=== PATIENT | female | born 1995 | race Caucasian/White ===

== ENCOUNTER → 2016-05-21 | Outpatient (CLI) | payer OTHER ==
[2016-05-21 15:43] LABS: APPEARANCE,URINE CLEAR; BILIRUBIN,URINE NEGATIVE (NEGATIVE); GLUCOSE, URINE NEGATIVE (NEGATIVE); KETONES,URINE NEGATIVE (NEGATIVE); LEUKOCYTE ESTERASE,URINE NEGATIVE (NEGATIVE); NITRITE,URINE NEGATIVE (NEGATIVE); PROTEIN,URINE NEGATIVE (NEGATIVE); URINE SPECIFIC GRAVITY 1.006; UROBILINOGEN,URINE NEGATIVE mg/dL (<2.0)
== END ==
LOC: OD 14:54
PROVIDERS: ATTEND Physician Assistant
DX: Z00.00 Encounter for general adult medical examination without abnormal findings (principal)
CPT/HCPCS: 36415; 81001; 85660

== ENCOUNTER → 2016-11-20 | Outpatient (CLI) | payer OTHER ==
[2016-11-20 15:15] LABS: ADD HIVPANEL? NO; HIV (1 AND 2) ANTIBODY NEGATIVE (NEGATIVE)
[2016-11-21 17:12] LABS: CHLAM PCR NOT DETECTED (NOT DETECT)
== END ==
LOC: OD 12:52
PROVIDERS: ATTEND Pediatrics
DX: Z11.3 Encounter for screening for infections with a predominantly sexual mode of transmission (principal)
CPT/HCPCS: 36415; 86592; 86701; 87491; 87591

== ENCOUNTER 2016-12-23 17:58 | Emergency (ER) | payer OTHER ==
--- NOTE | 2016-12-23 19:20 | ER Document Report ---
ED GI/ - General Chief Complaint: Pelvic pain/ peeing blood Stated Complaint: PELVIC PAIN/VAGINAL BLEEDING Time Seen by Provider: 12/23/16 18:58 Mode of Arrival: Ambulatory Information source: Patient Notes: 21-year-old female presents to ED for pelvic pain and vaginal bleeding. She states she has blood when she urinates. She also has tingling when she urinates and severe pain afterwards. She states this all started yesterday. She states she was on control until about 2 months ago. She states her periods have always been until her last period which was 2 weeks late which was 2 weeks ago. At that time she went to her primary doctor and they did all the STD checks which were negative. She states then she started bleeding again last night when the pain started. TRAVEL OUTSIDE OF THE [place] IN LAST 30 DAYS: No - HPI Patient complains to provider of: Pelvic pain, Vaginal bleeding, Vaginal pain, Other - Pain burning and blood with urine. No: Vaginal discharge Onset: Yesterday Timing/Duration: Intermittent Quality of pain: Burning, Sharp Severity at maximum: Moderate Severity in ED: Moderate Pain Level: 3 Location: Suprapubic, Pelvis Vaginal bleeding (Compared to normal period): Senior Outside Sales Representative, Dark brown LMP: 2 weeks ago Associated symptoms: Urinary frequency, Urinary urgency, Other - States it tingles when she urinates and then afterwards it is severe pain. 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 Lives with: Parents Family History: CAD, CVA, DM, Hyperlipidemia, Hypertension, Thyroid Disfunction Patient has suicidal ideation: No Patient has homicidal ideation: No - Past Medical History Cardiac Medical History: Reports: None Pulmonary Medical History: Reports: Hx Asthma EENT Medical History: Reports: None Neurological Medical History: Reports: None Endocrine Medical History: Reports: Hx Hypothyroidism Renal/ Medical History: Reports: Hx Ovarian Cysts Malignancy Medical History: Reports: None GI Medical History: Reports: None Musculoskeltal Medical History: Reports Hx Arthritis, Reports Hx Musculoskeletal Deformity, Reports Hx Musculoskeletal Trauma Skin Medical History: Reports None Psychiatric Medical History: Reports: None Traumatic Medical History: Reports: Hx Fractures - Right foot and left hand Infectious Medical History: Reports: None Past Surgical History: Reports: Hx Orthopedic Surgery - left hip - Immunizations Hx Diphtheria, Pertussis, Tetanus Vaccination: No - > 5 yrs ago Review of Systems - Review of Systems Constitutional: No symptoms reported EENT: No symptoms reported Cardiovascular: No symptoms reported Respiratory: No symptoms reported Gastrointestinal: No symptoms reported Genitourinary: Burning, Frequency, Hematuria Female Genitourinary: Vaginal bleeding, Other - pelvic pain Musculoskeletal: No symptoms reported Skin: No symptoms reported Hematologic/Lymphatic: No symptoms reported Neurological/Psychological: No symptoms reported -: Yes All other systems reviewed and negative Physical Exam - Vital signs Vitals: Temp Pulse Resp BP Pulse Ox 99.0 F 80 16 118/58 L 99 12/23/16 18:30 12/23/16 18:30 12/23/16 18:30 12/23/16 18:30 12/23/16 18:30 Interpretation: Normal - General General appearance: Appears well, Alert - HEENT Head: Normocephalic, Atraumatic Eyes: Normal Pupils: PERRL - Respiratory Respiratory status: No respiratory distress Chest status: Nontender Breath sounds: Normal Chest palpation: Normal - Cardiovascular Rhythm: Regular Heart sounds: Normal auscultation Murmur: No - Abdominal Inspection: Normal Distension: No distension Bowel sounds: Normal Tenderness: Tender - suprapubic pain Organomegaly: No organomegaly - Back Back: Normal, Nontender - Extremities General upper extremity: Normal inspection, Nontender, Normal color, Normal ROM , Normal temperature General lower extremity: Normal inspection, Nontender, Normal color, Normal ROM , Normal temperature, Normal weight bearing. No: Cheryl's sign - Neurological Neuro grossly intact: Yes Cognition: Normal Orientation: AAOx4 Buster Coma Scale Eye Opening: Spontaneous [place] Coma Scale Verbal: Oriented [place] Coma Scale Motor: Obeys Commands [place] Coma Scale Total: 15 Speech: Normal Motor strength normal: LUE, RUE, LLE, RLE Sensory: Normal - Psychological Associated symptoms: Normal affect, Normal mood - Skin Skin Temperature: Warm Skin Moisture: Dry Skin Color: Normal Course - Re-evaluation Re-evalutation: 12/23/16 21:27 Discussed ultrasound and labs with patient. Patient was treated with Macrobid for the UTI. Patient discharged home to follow-up with her primary doctor. Patient sent home with a prescription for Macrobid. Urine culture was sent. - Vital Signs Vital signs: Temp Pulse Resp BP Pulse Ox 99.0 F 80 16 118/58 L 99 12/23/16 18:30 12/23/16 18:30 12/23/16 18:30 12/23/16 18:30 12/23/16 18:30 - Laboratory Result Diagrams: 12/23/16 20:08 Laboratory results interpreted by me: 12/23/16 20:20 Urine Blood LARGE H Ur Leukocyte Esterase LARGE H - Diagnostic Test Radiology reviewed: Image reviewed, Reports reviewed Discharge - Discharge Clinical Impression: Vaginal bleeding UTI (urinary tract infection) Qualifiers: Urinary tract infection type: site unspecified Hematuria presence: with hematuria Qualified Code(s): N39.0 - Urinary tract infection, site not specified Condition: Stable Disposition: HOME, SELF-CARE Instructions: Family Physicians / Practices Additional Instructions: URINARY TRACT INFECTION: Your evaluation indicates that you have a urinary tract infection. This is due to germs growing in the bladder. This is a common problem. This infection usually responds quickly to antibiotics. Your antibiotic should be taken exactly as prescribed. Drink plenty of fluids -- three to four quarts a day. Occasionally, a bladder anesthetic will be prescribed to help stop the feeling of urgency until the antibiotic has a chance to clear the infection. This may cause your urine to be dark orange. Certain urine infections require a culture. If the doctor obtained a culture, the results will be back in two days. You should call to see if a change in treatment is needed. A repeat urinalysis after you finish treatment is often recommended. The physician will let you know if further testing is required. Call the doctor if you develop fever, chills, flank pain, inability to urinate, or blood in the urine. NITROFURANTOIN (MACRODANTIN, MACROBID): You have received a prescription for nitrofurantoin (Macrodantin). This antibiotic is used for urinary tract infections. Women who are or nursing should notify the physician before taking this medicine. If you have ever had a problem caused by this medication in the past, be sure the physician is aware of it. Common side effects of this medicine include nausea, vomiting, or decreased appetite. Notify your physician if these side effects become severe. Immediately stop this medicine and call the physician if you develop cough , shortness of breath, chest pain, weakness, jaundice (yellow color of the skin and whites of the eyes), or a skin rash. URINARY ANESTHETIC AGENT: You have been given a medication (Pyridium) for urinary tract discomfort. This medicine numbs the lining of the bladder and urethra, resulting in less pain, burning, and urgency. You may take it as needed, according to instructions. When the symptoms resolve, you can stop this medication (be sure to continue any other medications the doctor has given you). This medicine turns the urine a dark orange. It may stain underwear. Occasionally, it can cause nausea. Return for evaluation if there are any unexpected effects, such as itching, hives, or shortness of breath. FOLLOW-UP CARE: If you have been referred to a physician for follow-up care, call the physician s office for an appointment as you were instructed or within the next two days. If you experience worsening or a significant change in your symptoms, notify the physician immediately or return to the Emergency Department at any time for re-evaluation. Prescriptions: Nitrofurantoin/Nitrofuran Mac [Macrobid 100 mg Capsule] 1 tab PO BID #14 capsule Phenazopyridine HCl [Pyridium] 200 mg PO TID #6 tablet
[2016-12-23 20:25] LABS: ABSOLUTE EOSINOPHILS # (AUTO) 0.4 10^3/uL (0.0-0.6); ABSOLUTE LYMPHOCYTES (AUTO) 1.4 10^3/uL (0.5-4.7); ABSOLUTE MONOCYTES (AUTO) 0.6 10^3/uL (0.1-1.4); BASOPHILS % (AUTO) 0.6 % (0-2); EOSINOPHILS % (AUTO) 5.4 % (0-6); HEMATOCRIT 36.1 % (36.0-47.0); HEMOGLOBIN 12.4 g/dL (12.0-15.5); HGB HCT DIFFERENCE 1.1; LYMPHOCYTES % (AUTO) 19.2 % (13-45); MEAN CORPUSCULAR HEMOGLOBIN 31.7 pg (27.0-33.4); MEAN CORPUSCULAR HGB CONC 34.4 g/dL (32.0-36.0); MEAN CORPUSCULAR VOLUME 92 fl (80-97); RED BLOOD COUNT 3.91 10^6/uL (3.72-5.28); RED CELL DISTRIBUTION WIDTH 13.2 % (11.5-14.0); SEGMENTED NEUTROPHILS % (AUTO) 66.8 % (42-78); WHITE BLOOD COUNT 7.5 10^3/uL (4.0-10.5)
[2016-12-23 20:32] LABS: APPEARANCE,URINE SLIGHTLY-CLOUDY; BILIRUBIN,URINE NEGATIVE (NEGATIVE); GLUCOSE, URINE NEGATIVE (NEGATIVE); KETONES,URINE NEGATIVE (NEGATIVE); LEUKOCYTE ESTERASE,URINE LARGE (NEGATIVE); NITRITE,URINE NEGATIVE (NEGATIVE); PROTEIN,URINE NEGATIVE (NEGATIVE); URINE SPECIFIC GRAVITY 1.008; UROBILINOGEN,URINE NEGATIVE mg/dL (<2.0)
--- NOTE | 2016-12-23 20:58 | RADIOLOGY REPORT (SQ) ---
EXAM DESCRIPTION: U/S NON-OB PELVIS TV W/O DOP COMPLETED DATE/TIME: 12/23/2016 8:47 pm REASON FOR STUDY: pelvic pain with bleeding COMPARISON: 12/20/2014. TECHNIQUE: Dynamic and static grayscale images acquired of the pelvis via transvaginal approach and recorded on PACS. Additional selected color Doppler and spectral images recorded. LIMITATIONS: None. FINDINGS: UTERUS: Contour normal. No mass. ENDOMETRIAL STRIPE: No focal or generalized thickening. No masses. CERVIX: No nabothian cysts. RIGHT OVARY: No abnormal masses. RIGHT OVARY DOPPLER: Normal arterial vascular flow without evidence for torsion. LEFT OVARY: No abnormal masses. LEFT OVARY DOPPLER: Normal arterial vascular flow without evidence for torsion. FREE FLUID: None noted. OTHER: No other significant finding. MEASUREMENTS: UTERUS: 3.4 x 4.5 x 8.2 cm. ENDOMETRIAL STRIPE: 2 mm. RIGHT OVARY: 1.4 x 2.3 x 2.9 cm. LEFT OVARY: 1.9 x 2.4 x 3.2 cm. IMPRESSION: NORMAL TRANSVAGINAL PELVIC ULTRASOUND. TECHNICAL DOCUMENTATION: JOB ID: [id number]- All Rights Reserved
[2016-12-23] MEDS ORDERED: NITROFURANTOIN MONOHYD/M-CRYST 100 MG CAPSULE PO ONE (21:26)
[2016-12-23] MEDS ORDERED: PHENAZOPYRIDINE HCL 100 MG TABLET PO ONE (21:57)
[2016-12-23 22:33] VITALS: BP 126/69
== END 2016-12-23 22:22 | disposition home or self-care (01) ==
LOC: ER 17:58
DX: N39.0 Urinary tract infection, site not specified (principal); N93.8 Other specified abnormal uterine and vaginal bleeding; R10.2 Pelvic and perineal pain
CPT/HCPCS: 99284; 36415; 87086; 84703; 85025; 87088; 81001; 87186; 76830; J3490; J8499

== ENCOUNTER → 2017-02-04 | Outpatient (CLI) | payer OTHER ==
[2017-02-04 09:58] LABS: APPEARANCE,URINE SLIGHTLY-CLOUDY; BILIRUBIN,URINE NEGATIVE (NEGATIVE); GLUCOSE, URINE NEGATIVE (NEGATIVE); KETONES,URINE NEGATIVE (NEGATIVE); LEUKOCYTE ESTERASE,URINE NEGATIVE (NEGATIVE); NITRITE,URINE NEGATIVE (NEGATIVE); PROTEIN,URINE 30 mg/dL (NEGATIVE); URINE SPECIFIC GRAVITY 1.014; UROBILINOGEN,URINE NEGATIVE mg/dL (<2.0)
[2017-02-04 10:18] LABS: ALANINE AMINOTRANSFERASE 43 U/L (9-52); ALBUMIN 3.8 g/dL (3.5-5.0); ALKALINE PHOSPHATASE 70 U/L (38-126); ANION GAP 11 (5-19); ASPARTATE AMINO TRANSFERASE 30 U/L (14-36); BILIRUBIN,DIRECT 0.5 mg/dL (0.0-0.4); BILIRUBIN,TOTAL 0.6 mg/dL (0.2-1.3); BLOOD UREA NITROGEN 9 mg/dL (7-20); CALCIUM 8.9 mg/dL (8.4-10.2); CARBON DIOXIDE 26 mmol/L (22-30); CHLORIDE 107 mmol/L (98-107); CREATINE KINASE 181 U/L (30-135); CREATININE RESULT 0.68 mg/dL (0.52-1.25); GLUCOSE 91 mg/dL (75-110); POTASSIUM 4.1 mmol/L (3.6-5.0); SODIUM 143.5 mmol/L (137-145)
== END ==
LOC: OD 08:49
PROVIDERS: ATTEND Nurse Practitioner Pediatrics
DX: N39.0 Urinary tract infection, site not specified (principal); R25.2 Cramp and spasm
CPT/HCPCS: 36415; 80053; 81001; 82550

== ENCOUNTER 2018-01-10 21:23 | Emergency (ER) | payer OTHER ==
[2018-01-10] MEDS ORDERED: ONDANSETRON 4 MG TAB.RAPDIS PO ONE (21:46)
[2018-01-11] MEDS ORDERED: ONDANSETRON 4 MG TAB.RAPDIS ONE (00:33)
[2018-01-11 02:18] VITALS: BP 123/58
[2018-01-11 03:05] LABS: APPEARANCE,URINE SLIGHTLY-CLOUDY; BILIRUBIN,URINE NEGATIVE (NEGATIVE); COLOR,URINE YELLOW; GLUCOSE, URINE NEGATIVE (NEGATIVE); KETONES,URINE NEGATIVE (NEGATIVE); LEUKOCYTE ESTERASE,URINE NEGATIVE (NEGATIVE); NITRITE,URINE NEGATIVE (NEGATIVE); PROTEIN,URINE NEGATIVE (NEGATIVE); URINE SPECIFIC GRAVITY 1.017
== END 2018-01-11 04:18 | disposition left against medical advice (07) ==
LOC: ER 21:23
DX: Z53.21 Procedure and treatment not carried out due to patient leaving prior to being seen by health care provider (principal)
CPT/HCPCS: 81001; 81025; S0119

== ENCOUNTER 2019-05-21 05:38 | Emergency (ER) | payer BC, OTHER ==
[2019-05-21 06:47] LABS: A TYPE INFLUENZA AG NEGATIVE (NEGATIVE); B INFLUENZA AG NEGATIVE (NEGATIVE)
[2019-05-21] MEDS ORDERED: IPRATROPIUM/ALBUTEROL 0.5-2.5 MG/3 ML AMPUL NEB ONE ×2 (07:06→09:46)
[2019-05-21] MEDS ORDERED: BENZONATATE 100 MG CAPSULE PO ONE (10:33)
--- NOTE | 2019-05-21 10:38 | ER Document Report ---
ED Respiratory Problem - General Chief Complaint: Productive Cough Stated Complaint: TROUBLE BREATHING Time Seen by Provider: 05/21/19 09:46 Primary Care Provider: AMADOU GONZALEZ MD [Primary Care Provider] - Follow up as needed Notes: Patient is a 24-year-old female with a history of asthma who presents the emergency department with a chief complaint of this of breath and difficulty breathing. Patient has been diagnosed with pneumonia twice recently. She has been placed on antibiotics and steroids. TRAVEL OUTSIDE OF THE [place] IN LAST 30 DAYS: No - Related Data Allergies/Adverse Reactions: No Known Allergies Allergy (Unverified 03/04/15 09:10) Home Medications: albuterol inhaler/neb Past Medical History - Social History Smoking Status: Never Smoker Frequency of alcohol use: None Family History: CAD, CVA, DM, Hyperlipidemia, Hypertension, Thyroid Disfunction Patient has suicidal ideation: No Patient has homicidal ideation: No Pulmonary Medical History: Reports: Hx Asthma, Hx Bronchitis Endocrine Medical History: Reports: Hx Hypothyroidism Renal/ Medical History: Reports: Hx Ovarian Cysts. Denies: Hx Peritoneal Dialysis Musculoskeletal Medical History: Reports Hx Arthritis, Reports Hx Musculoskeletal Deformity, Reports Hx Musculoskeletal Trauma Traumatic Medical History: Reports: Hx Fractures - Right foot and left hand Past Surgical History: Reports: Hx Orthopedic Surgery - left hip - Immunizations Hx Diphtheria, Pertussis, Tetanus Vaccination: No - > 5 yrs ago Review of Systems - Review of Systems Notes: REVIEW OF SYSTEMS: CONSTITUTIONAL : Denies recent illness. Denies recent unintentional weight loss. Denies fever, chills, or sweats. EENT: Denies eye, ear, throat, or mouth pain, discharge, or symptoms. Denies nasal or sinus congestion. CARDIOVASCULAR: Denies chest pain. RESPIRATORY: See HPI. GASTROINTESTINAL: Denies nausea, vomiting, and diarrhea. Denies abdominal pain. Denies constipation. GENITOURINARY: Denies difficulty urinating, burning, blood in urine, urgency or frequency. MUSCULOSKELETAL: Denies neck and back pain. Denies joint pain or swelling. SKIN: Denies rash, itchiness, or lesions HEMATOLOGIC : Denies easy bruising or bleeding. LYMPHATIC: Denies swollen, painful, enlarged glands. NEUROLOGICAL: Denies no numbness or tingling denies weakness. Denies headache. Denies altered mental status. Denies alteration in speech. PSYCHIATRIC: Denies stress, anxiety, alteration in sleep patterns, or depression. All other systems reviewed and negative. Physical Exam - Vital signs Vitals: Temp Pulse Resp BP Pulse Ox 97.6 F 105 H 18 118/60 99 05/21/19 05:51 05/21/19 05:51 05/21/19 05:51 05/21/19 05:51 05/21/19 05:51 - Notes Notes: PHYSICAL EXAMINATION: GENERAL: Appears well, healthy, well-nourished, no acute distress. HEAD: Normocephalic, atraumatic. EYES: PERRL, conjunctiva normal, all extraocular movements intact, sclera nonicteric ENT: Moist mucous membranes. NECK: Supple, no noticeable swelling, redness, rash. Normal range of motion. LUNGS: Equal breath sounds bilaterally and clear to auscultation. No wheezes rales or rhonchi. I assessed the patient's lung sounds after she received 2 DuoNeb treatments. CARDIOVASCULAR: S1-S2, regular rate, regular rhythm. Radial pulses 2+, normal. ABDOMEN: Normoactive bowel sounds. Soft, nontender, no guarding, no rebound tenderness, and no masses palpated. EXTREMITIES: Normal strength and range of motion, no pitting or edema. No cyanosis. NEUROLOGICAL: Moves all extremities upon command. Strength 5/5 in all extremities. PSYCH: Normal mood, normal affect. SKIN: Warm, dry. No rash, lesions, ulcerations noted. Normal skin turgor. Course - Re-evaluation Re-evalutation: 05/21/19 10:37 Patient's lung sounds are clear. Rapid strep and flu tests are negative. She will be sent for a chest x-ray to rule out pneumonia. I do lengthy conversation with the patient about not smoking, as this may trigger her asthma. I also spoke to her about her smoking and her being exposed to the smoke. 05/21/19 12:11 Patient's chest x-ray is negative. No pneumonia noted. She will be placed on prednisone. She also be sent home with cetirizine, Flonase, and Tessalon Perles. Follow-up precautions were given. Verbal discharge instructions were given to the patient. They verbalized understanding. They are stable for discharge. - Vital Signs Vital signs: Temp Pulse Resp BP Pulse Ox 98.5 F 97 16 104/64 98 05/21/19 12:07 05/21/19 12:07 05/21/19 12:07 05/21/19 12:07 05/21/19 12:07 Discharge - Discharge Clinical Impression: Cough Asthma exacerbation Qualifiers: Asthma severity: moderate Asthma persistence: unspecified Qualified Code(s): J45.901 - Unspecified asthma with (acute) exacerbation Condition: Stable Disposition: HOME, SELF-CARE Additional Instructions: You were seen for an asthma exacerbation. Your symptoms improved with treatment here in the emergency department. However, it is very important that you return to the emergency department immediately if you began to have worsening difficulty breathing that does not respond to your normal home nebulizers. You are also being sent home on a five-day course of steroids that you should start taking tomorrow. Please also follow closely with your primary care physician. you should also return to emergency department if you develop fever greater than 101, persistent cough, persistent vomiting, pass out, or any other symptoms that are concerning to you. Prescriptions: Benzonatate [Tessalon Perles 100 mg Capsule] 100 mg PO Q8HP PRN #40 capsule PRN Reason: Cetirizine HCl [All Day Allergy] 10 mg PO DAILY #30 tablet Prednisone [Deltasone 20 mg Tablet] 3 tab PO DAILY 5 Days #15 tablet Fluticasone Propionate [Flonase Nasal [place] 50 Mcg/[place] 16 gm] 2 sprays NASL DAILY #1 inhaler Referrals: AMADOU GONZALEZ MD [Primary Care Provider] - Follow up in 3-5 days
--- NOTE | 2019-05-21 11:03 | RADIOLOGY REPORT (SQ) ---
EXAM DESCRIPTION: CHEST 2 VIEWS COMPLETED DATE/TIME: 05/21/2019 10:55 am REASON FOR STUDY: cough; hx of PNA COMPARISON: None. EXAM PARAMETERS: NUMBER OF VIEWS: two views TECHNIQUE: Digital Frontal and Lateral radiographic views of the chest acquired. RADIATION DOSE: NA LIMITATIONS: none FINDINGS: LUNGS AND PLEURA: No opacities, masses or pneumothorax. No pleural effusion. MEDIASTINUM AND HILAR STRUCTURES: No masses or contour abnormalities. HEART AND VASCULAR STRUCTURES: Heart normal size. No evidence for failure. BONES: No acute findings. HARDWARE: None in the chest. OTHER: No other significant finding. IMPRESSION: NO ACUTE RADIOGRAPHIC FINDING IN THE CHEST. TECHNICAL DOCUMENTATION: JOB ID: [id number] [employer]- All Rights Reserved Reading location - IP/workstation name: [email or web address]
[2019-05-21 12:08] VITALS: BP 104/64
[2019-05-21] MEDS ORDERED: ALBUTEROL SULFATE HFA (90 MCG/PUFF) 8 GM MDI (1 MDI/ER DISP) IH PRN (12:13)
== END 2019-05-21 12:26 | disposition home or self-care (01) ==
LOC: ER 05:38
DX: J45.901 Unspecified asthma with (acute) exacerbation (principal); R05 Cough; Z87.01 Personal history of pneumonia (recurrent); Z79.899 Other long term (current) drug therapy
CPT/HCPCS: 94640 ×2; 99283; 87070; 87880; 87804; 71046; J3490; J7620

== ENCOUNTER 2019-10-05 12:01 | Emergency (ER) | payer BC ==
[2019-10-05] MEDS ORDERED: ACETAMINOPHEN 325 MG TABLET PO ONE (12:25)
[2019-10-05] MEDS ORDERED: METOCLOPRAMIDE HCL 10 MG TABLET PO ONE (12:27)
--- NOTE | 2019-10-05 12:27 | ER Document Report ---
ED Medical Screen (RME) - General Chief Complaint: Flank Pain Stated Complaint: FLANK PAIN,VOMITING/7 WKS PREG Time Seen by Provider: 10/05/19 12:21 Notes: Patient is a G1, P0 24-year-old female presents emergency department with a chief complaint of right upper quadrant abdominal pain. Patient states that she is currently and her last menstrual cycle was August 15. Patient denies any vaginal discharge. Denies any vaginal bleeding. Exam: Tender right upper quadrant abdomen. I have greeted and performed a rapid initial assessment of this patient. A comprehensive ED assessment and evaluation of the patient, analysis of test results and completion of medical decision making process will be conducted by an additional ED providers. TRAVEL OUTSIDE OF THE [place] IN LAST 30 DAYS: No - Related Data Allergies/Adverse Reactions: No Known Allergies Allergy (Verified 10/05/19 12:21) Past Medical History Pulmonary Medical History: Reports: Hx Asthma, Hx Bronchitis Endocrine Medical History: Reports: Hx Hypothyroidism Renal/ Medical History: Reports: Hx Ovarian Cysts. Denies: Hx Peritoneal Dialysis Musculoskeltal Medical History: Reports Hx Arthritis, Reports Hx Musculoskeletal Deformity, Reports Hx Musculoskeletal Trauma Traumatic Medical History: Reports: Hx Fractures - Right foot and left hand Past Surgical History: Reports: Hx Orthopedic Surgery - left hip - Immunizations Hx Diphtheria, Pertussis, Tetanus Vaccination: No - > 5 yrs ago Physical Exam - Vital signs Vitals: Temp Pulse Resp BP Pulse Ox 97.8 F 74 16 117/60 100 10/05/19 12:10 10/05/19 12:10 10/05/19 12:10 10/05/19 12:10 10/05/19 12:10 Course - Vital Signs Vital signs: Temp Pulse Resp BP Pulse Ox 97.8 F 74 16 117/60 100 10/05/19 12:10 10/05/19 12:10 10/05/19 12:10 10/05/19 12:10 10/05/19 12:10
[2019-10-05 12:50] LABS: ABSOLUTE EOSINOPHILS # (AUTO) 0.2 10^3/uL (0.0-0.6); ABSOLUTE MONOCYTES (AUTO) 0.5 10^3/uL (0.1-1.4); BASOPHILS % (AUTO) 0.5 % (0-2); HEMATOCRIT 39.2 % (36.0-47.0); HEMOGLOBIN 13.4 g/dL (12.0-15.5); LYMPHOCYTES % (AUTO) 35.2 % (13-45); MEAN CORPUSCULAR HEMOGLOBIN 31.9 pg (27.0-33.4); MEAN CORPUSCULAR HGB CONC 34.1 g/dL (32.0-36.0); MEAN CORPUSCULAR VOLUME 93 fl (80-97); MONOCYTES % (AUTO) 9.5 % (3-13); PLATELET COUNT 184 10^3/uL (150-450); RED CELL DISTRIBUTION WIDTH 12.9 % (11.5-14.0); SEGMENTED NEUTROPHILS % (AUTO) 51.8 % (42-78); TOTAL CELLS COUNTED % (AUTO) 100 %; WHITE BLOOD COUNT 5.8 10^3/uL (4.0-10.5)
[2019-10-05 12:54] LABS: APPEARANCE,URINE CLEAR; BILIRUBIN,URINE NEGATIVE (NEGATIVE); COLOR,URINE COLORLESS; GLUCOSE, URINE NEGATIVE (NEGATIVE); KETONES,URINE NEGATIVE (NEGATIVE); LEUKOCYTE ESTERASE,URINE NEGATIVE (NEGATIVE); NITRITE,URINE NEGATIVE (NEGATIVE); PROTEIN,URINE NEGATIVE (NEGATIVE); URINE SPECIFIC GRAVITY 1.004; UROBILINOGEN,URINE NEGATIVE mg/dL (<2.0)
[2019-10-05 13:14] LABS: ALKALINE PHOSPHATASE 74 U/L (38-126); ANION GAP 6 (5-19); ASPARTATE AMINO TRANSFERASE 19 U/L (14-36); BILIRUBIN,TOTAL 0.8 mg/dL (0.2-1.3); BLOOD UREA NITROGEN 13 mg/dL (7-20); CALCIUM 9.2 mg/dL (8.4-10.2); CARBON DIOXIDE 25 mmol/L (22-30); CHLORIDE 105 mmol/L (98-107); GLUCOSE 92 mg/dL (75-110); POTASSIUM 4.5 mmol/L (3.6-5.0); TOTAL PROTEIN 6.5 g/dL (6.3-8.2)
--- NOTE | 2019-10-05 13:36 | RADIOLOGY REPORT (SQ) ---
EXAM DESCRIPTION: U/S ABDOMEN LIMITED W/O DOP IMAGES COMPLETED DATE/TIME: 10/05/2019 1:11 pm REASON FOR STUDY: RUQ abd pain COMPARISON: 2012 TECHNIQUE: Dynamic and static grayscale images acquired of the abdomen and recorded on PACS. Sebo tammy selected color Doppler and spectral images recorded. LIMITATIONS: None. FINDINGS: PANCREAS: No masses. Visualized pancreatic duct normal caliber. LIVER: No masses. Echotexture normal. LIVER VASCULATURE: Normal directional flow of the main portal vein and hepatic veins. GALLBLADDER: No stones. Normal wall thickness. No pericholecystic fluid. ULTRASOUND-DETECTED ERICKSON'S SIGN: Negative. INTRAHEPATIC DUCTS AND COMMON DUCT: CBD and intrahepatic ducts normal caliber. No filling defects. AORTA: No aneurysm. RIGHT KIDNEY: Normal size, 10 cm. Normal echogenicity. No solid or suspicious masses. No hydronephro sis. No calcifications. PERITONEAL AND RIGHT PLEURAL SPACE: No ascites or effusions. OTHER: No other significant findings. IMPRESSION: NORMAL RIGHT UPPER QUADRANT ULTRASOUND. TECHNICAL DOCUMENTATION: JOB ID: [id number] [employer]- All Rights Reserved Reading location - IP/workstation name: [email or web address]
--- NOTE | 2019-10-05 15:55 | ER Document Report ---
ED GI/ - General Chief Complaint: Abdominal Pain Stated Complaint: FLANK PAIN,VOMITING/7 WKS PREG Time Seen by Provider: 10/05/19 12:21 Notes: Patient is a 24-year-old female G1, P0 presents emergency department with a chief complaint of right upper quadrant pain. Patient reports that she does have a history of gastritis. Patient reports 1 year ago she did have an upper endoscopy was placed to follow-up to rule out gastroparesis. Patient reports she normally takes omeprazole 80 mg daily but has not been over the past 2 weeks due to recently finding out that she is . Patient reports that she does have upper abdominal discomfort with her gastritis that this is different as it does radiate into her right flank. Patient also reports having some left hip pain. Patient denies any vaginal bleeding or discharge. Patient denies fever. Patient reports that when her acid reflux gets bad she vomits multiple times per day. Last menstrual cycle August 15. TRAVEL OUTSIDE OF THE [place] IN LAST 30 DAYS: No - Related Data Allergies/Adverse Reactions: No Known Allergies Allergy (Verified 10/05/19 12:21) Past Medical History - General Information source: Patient - Social History Smoking Status: Former Smoker Chew tobacco use (# tins/day): No Frequency of alcohol use: None Drug Abuse: None Lives with: Alone Family History: CAD, CVA, DM, Hyperlipidemia, Hypertension, Thyroid Disfunction Patient has homicidal ideation: No - Past Medical History Cardiac Medical History: Reports: None Pulmonary Medical History: Reports: Hx Asthma, Hx Bronchitis EENT Medical History: Reports: None Neurological Medical History: Reports: None Endocrine Medical History: Reports: Hx Hypothyroidism Renal/ Medical History: Reports: Hx Ovarian Cysts. Denies: Hx Peritoneal Dialysis Malignancy Medical History: Reports: None GI Medical History: Reports: None Musculoskeletal Medical History: Reports Hx Arthritis, Reports Hx Musculoskeletal Deformity, Reports Hx Musculoskeletal Trauma Skin Medical History: Reports None Psychiatric Medical History: Reports: None Traumatic Medical History: Reports: Hx Fractures - Right foot and left hand Infectious Medical History: Reports: None Past Surgical History: Reports: Hx Orthopedic Surgery - left hip - Immunizations Hx Diphtheria, Pertussis, Tetanus Vaccination: No - > 5 yrs ago Review of Systems - Review of Systems Constitutional: No symptoms reported EENT: No symptoms reported Cardiovascular: No symptoms reported Respiratory: No symptoms reported Gastrointestinal: See HPI Genitourinary: No symptoms reported Female Genitourinary: No symptoms reported Musculoskeletal: No symptoms reported Skin: No symptoms reported Hematologic/Lymphatic: No symptoms reported Physical Exam - Vital signs Vitals: Temp Pulse Resp BP Pulse Ox 97.8 F 74 16 117/60 100 10/05/19 12:10 10/05/19 12:10 10/05/19 12:10 10/05/19 12:10 10/05/19 12:10 Interpretation: Normal - Notes Notes: GENERAL: Well-appearing, well-nourished and in no acute distress. HEAD: Atraumatic, normocephalic. EYES: Pupils equal round and reactive to light, extraocular movements intact, sclera anicteric, conjunctiva are normal. ENT: Nares patent, oropharynx clear without exudates. Moist mucous membranes. NECK: Normal range of motion, supple without lymphadenopathy or JVD. LUNGS: Breath sounds clear to auscultation bilaterally and equal. No wheezes rales or rhonchi. HEART: Regular rate and rhythm without murmurs, rubs or gallops. ABDOMEN: Soft, epiagstric and ruq tenderness, normoactive bowel sounds. No guarding, no rebound. No masses appreciated. BACK: No cervical, thoracic, lumbar midline tenderness. No saddle anesthesia, normal distal neurovascular exam. No CVA tenderness. GENITOURINARY: Deferred. EXTREMITIES: Normal range of motion, no pitting or edema. No clubbing or cyanosis. NEUROLOGICAL: Cranial nerves II through XII grossly intact. Normal speech, normal gait. PSYCH: Normal mood, normal affect. SKIN: Warm, Dry, normal turgor, no rashes or lesions noted. Course - Vital Signs Vital signs: Temp Pulse Resp BP Pulse Ox 97.8 F 74 16 117/60 100 10/05/19 12:21 10/05/19 12:10 10/05/19 12:10 10/05/19 12:10 10/05/19 12:10 - Laboratory Result Diagrams: 10/05/19 12:35 10/05/19 12:35 Laboratory results interpreted by me: 10/05/19 12:35 Sodium 136.2 L Beta HCG, Quant 4914.80 H 10/05/19 17:36 Laboratory 10/05/19 10/05/19 10/05/19 12:35 12:35 12:35 WBC 5.8 RBC 4.20 Hgb 13.4 Hct 39.2 MCV 93 MCH 31.9 MCHC 34.1 RDW 12.9 Plt Count 184 Lymph % (Auto) 35.2 [place] % (Auto) 9.5 Eos % (Auto) 3.0 Baso % (Auto) 0.5 Absolute Neuts (auto) 3.0 Absolute Lymphs (auto) 2.0 Absolute Monos (auto) 0.5 Absolute Eos (auto) 0.2 Absolute Basos (auto) 0.0 Seg Neutrophils % 51.8 Sodium 136.2 L Potassium 4.5 Chloride 105 Carbon Dioxide 25 Anion Gap 6 BUN 13 Creatinine 0.62 Est GFR ( Amer) > 60 Est GFR (MDRD) Non-Af > 60 Glucose 92 Calcium 9.2 Total Bilirubin 0.8 Direct Bilirubin 0.0 Neonat Total Bilirubin Not Reportable Neonat Direct Bilirubin Not Reportable Neonat Indirect Bili Not Reportable AST 19 ALT 13 Alkaline Phosphatase 74 Total Protein 6.5 Albumin 4.0 Lipase 73.5 Beta HCG, Quant 4914.80 H Total Beta HCG POSITIVE Urine Color COLORLESS Urine Appearance CLEAR Urine pH 7.0 Ur Specific [place] 1.004 Urine Protein NEGATIVE Urine Glucose (UA) NEGATIVE Urine Ketones NEGATIVE Urine Blood NEGATIVE Urine Nitrite NEGATIVE Urine Bilirubin NEGATIVE Urine Urobilinogen NEGATIVE Ur Leukocyte Esterase NEGATIVE Urine WBC (Auto) 0 Squamous Epi Cells Auto 1 Urine Mucus (Auto) RARE Urine Ascorbic Acid NEGATIVE - Diagnostic Test Radiology reviewed: Reports reviewed Radiology results interpreted by me: 10/05/19 17:35 Abdomen Ultrasound 10/05/19 12:25 IMPRESSION: NORMAL RIGHT UPPER QUADRANT ULTRASOUND. Transvaginal US 10/05/19 15:48 IMPRESSION: 1. No LIVING INTRAUTERINE . Gestational sac size correlates to estimated gestational age 5 weeks 5 days. Correlation with lab values, and follow-up examination. 2. Right ovarian cyst, may represent corpus luteal cyst. 3. The left ovary is not visualized sonographically due to overlying bowel gas. Discharge - Discharge Clinical Impression: Right upper quadrant abdominal pain Qualifiers: Weeks of gestation: less than 8 weeks Qualified Code(s): Z3A.01 - Less than 8 weeks gestation of Acid reflux Qualifiers: Esophagitis presence: esophagitis presence not specified Qualified Code(s): K21.9 - Gastro-esophageal reflux disease without esophagitis Condition: Stable Disposition: HOME, SELF-CARE Additional Instructions: *Today are seen in the emergency department for right upper quadrant pain. Your abdominal ultrasound was negative and did not show any acute problem with the gallbladder . your symptoms appear to be consistent with gastritis. Stop taking the omeprazole as it is not recommended in . I have placed you on Pepcid 20 mg daily. You did have an ultrasound which did show an intrauterine gestational sac measuring 5 weeks and 5 days. Please call a local [facility]Y MANAGER to make a follow-up appointment to establish care. You are . care is best started as early in as possible. If you're unsure about continuing this , you should discuss this with your physician or with n[facility] at [facility]. You should take only medications approved by your physician. Acetaminophen can safely be taken for minor pains. As a rule, medication for chronic conditions such as asthma or seizures can safely be continued. You should discuss with the physician every medicine you take. Any regular exercise program can be continued. Talk to your physician, however, before engaging in competitive or demanding sports. Alcohol, smoking, and "street drugs" are dangerous to your baby. Cocaine is especially dangerous. Don't use any illicit drugs! Prescriptions: Famotidine [Pepcid 20 mg Tablet] 20 mg PO DAILY #30 tablet
--- NOTE | 2019-10-05 17:18 | RADIOLOGY REPORT (SQ) ---
EXAM DESCRIPTION: U/S OB TRANSVAG W/DOPPLER IMAGES COMPLETED DATE/TIME: 10/05/2019 4:22 pm REASON FOR STUDY: abdominal pain, + COMPARISON: None. TECHNIQUE: Transvaginal static and realtime grayscale images acquired of the pelvis. Additional norbert cted spectral and color Doppler images recorded. All images stored on PACs. [facility] [email or web address] CLINICAL DATES: MELANIE: 05/17/2020 EGA: 7 weeks 6 days LIMITATIONS: None. FINDINGS: FETUS: No Living intrauterine . ULTRASOUND EGA: 5 weeks 5 days ULTRASOUND MELANIE: 06/01/2020 GESTATIONAL SAC: 1.0 X 0.8 X 0.4 CM CRL: Not visualized. UTERUS: The uterus measures 8.8 x 5.5 x 5.0 cm. No masses. No anomalies. CERVICAL LENGTH: 3.3 cm Closed. RIGHT ADNEXA: The right ovary measures 3.1 x 2.9 x 2.5 cm. A 2.2 x 2.1 x 2.0 cm cyst, probably pedro us luteum. No adnexal free fluid. LEFT ADNEXA: The left ovary is not visualized sonographically due to overlying bowel gas. FREE FLUID: Trace free fluid in the posterior cul-de-sac. OTHER: No other significant finding. IMPRESSION: 1. No LIVING INTRAUTERINE . Gestational sac size correlates to estimated gest ational age 5 weeks 5 days. Correlation with lab values, and follow-up examination. 2. Right ovarian cyst, may represent corpus luteal cyst. 3. The left ovary is not visualized sonographically due to overlying bowel gas. TECHNICAL DOCUMENTATION: JOB ID: [id number] [employer]- All Rights Reserved rev-09/04 Reading location - IP/workstation name: [facility]
[2019-10-05 17:46] VITALS: BP 118/70
== END 2019-10-05 17:45 | disposition home or self-care (01) ==
LOC: ER 12:01
DX: O99.611 Diseases of the digestive system complicating pregnancy, first trimester (principal); K21.9 Gastro-esophageal reflux disease without esophagitis; O21.9 Vomiting of pregnancy, unspecified; O34.81 Maternal care for other abnormalities of pelvic organs, first trimester; N83.201 Unspecified ovarian cyst, right side; O26.891 Other specified pregnancy related conditions, first trimester; R10.11 Right upper quadrant pain; R10.811 Right upper quadrant abdominal tenderness; R10.816 Epigastric abdominal tenderness; O99.511 Diseases of the respiratory system complicating pregnancy, first trimester; J45.909 Unspecified asthma, uncomplicated; O99.89 Other specified diseases and conditions complicating pregnancy, childbirth and the puerperium; M25.552 Pain in left hip; Z3A.01 Less than 8 weeks gestation of pregnancy; Z79.891 Long term (current) use of opiate analgesic
CPT/HCPCS: 36415; 76705; 76817; 80053; 81001; 83690; 84702; 85025; 93976; 99284